=== PATIENT | male | born 1960 | race Caucasian/White ===

== ENCOUNTER 2016-12-24 12:53 | Emergency (ER) | payer BC ==
[2016-12-24 12:38] LABS: BASOPHILS 0.1 %; BASOPHILS ABSOLUTE 0.01 10/3/uL (0.0-0.16); EOSINOPHILS 0.3 %; EOSINOPHILS ABSOLUTE 0.02 10/3/uL (0.0-0.53); HEMATOCRIT 42.9 % (40.0-51.0); HEMOGLOBIN 14.3 g/dL (13.6-17.8); IMMATURE GRANULOCYTES 0.5 %; IMMATURE GRANULOCYTES ABSOLUTE 0.04 10/3/uL (0.0-0.11); LYMPHOCYTES 7.9 %; LYMPHOCYTES ABSOLUTE 0.63 10/3/uL (0.67-4.30); MEAN CORPUS HGB CONC 33.3 g/dL (32.0-36.0); MEAN CORPUSCULAR VOLUME 93.1 fL (80-100); MEAN PLATELET VOLUME 10.8 fL (9.2-13.0); MONOCYTES 7.9 %; MONOCYTES ABSOLUTE 0.63 10/3/uL (0.21-1.20); NEUTROPHILS 83.3 %; NEUTROPHILS ABSOLUTE 6.67 10/3/uL (2.02-8.40); PLATELET COUNT 96 10/3/uL (150-400); RBC DISTRIBUTION WIDTH 17.1 % (12.0-16.0); RED CELL COUNT 4.61 10/6/uL (4.7-6.1)
[2016-12-24 12:39] LABS: MANUAL DIFF NO %
[~2016-12-24 12:53] MED LIST: ACTOS15 PO; AMARYL2 PO; ASAB PO; COLCRYS0.6 MG PO; COQ-10200 MG PO; DIOV160 PO; GLUCPH PO; HALF81 PO; HYPOTEARS OPH S15 ML OPH; INVOKANA300 MG PO; LANTUSCART SC; LEVSINTAB PO; LEXAPRO10 PO; NORCO1 TA2 PO; NYS500UDL PO; P10 PO; PRAVACHOL40 MG PO; PRILOSEC40 MG PO; PYRID60 PO; URSO FORTE500 MG PO; Z-PAK PO
[2016-12-24 12:56] LABS: A/G RATIO 0.7 (0.7-1.9); ALBUMIN 2.8 G/DL (3.5-5.0); CALCIUM, SERUM 9.5 MG/DL (8.5-10.4); CHLORIDE, SERUM 103 MMOL/L (96-112); CO2 (CARBON DIOXIDE) 27 MMOL/L (24-34); CREATININE 1.29 MG/DL (0.70-1.30); GFR AFRICAN AMERICAN 71 ML/MIN (>=60); GFR NON AFRICAN AMERICAN 61 ML/MIN (>=60); GLOBULIN 3.9 G/DL (2.5-4.1); POTASSIUM, SERUM 4.1 MMOL/L (3.5-5.3); SGOT(AST) 111 U/L (5-40); SGPT(ALT) 289 U/L (5-65); SODIUM, SERUM 141 MMOL/L (135-148); TOTAL PROTEIN 6.7 G/DL (6.0-8.5)
[2016-12-24 12:57] LABS: ALKALINE PHOSPHATASE 305 U/L (45-117); BUN (BLOOD UREA NITROGEN) 56 MG/DL (6-23); GLUCOSE, SERUM 255 MG/DL (60-99); TOTAL BILIRUBIN 0.9 MG/DL (0-1.2)
[2017-03-07] MEDS ORDERED: METHOC500B PO (17:50)
[2017-03-07] MEDS ORDERED: FORTEO SC (17:51)
[2017-03-07] MEDS ORDERED: DSS PO (17:51)
[2017-03-07] MEDS ORDERED: PERCOCET 10/3251 TAB PO (17:53)
[2017-03-07] MEDS ORDERED: OS500+D PO (17:53)
[2017-03-07] MEDS ORDERED: HUMALOG SC (17:56)
[2017-03-07] MEDS ORDERED: DEMA20 PO (17:56)
[2017-03-07] MEDS ORDERED: NEUR300 PO (17:57)
[2017-03-07] MEDS ORDERED: SPIRO50 PO (17:57)
[2017-05-03] MEDS ORDERED: NORCO1 TAB PO (22:11)
[2017-05-03] MEDS ORDERED: FORTEO SC (22:12)
[2017-05-03] MEDS ORDERED: HUMALOGPEN SC (22:13)
[2017-05-03] MEDS ORDERED: PRILOSEC40 MG PO (22:13)
[2017-05-03] MEDS ORDERED: LEVSINTAB PO (22:14)
[2017-05-03] MEDS ORDERED: LEXAPRO10 PO (22:14)
[2017-05-03] MEDS ORDERED: SPIRO50 PO (22:15)
[2017-05-03] MEDS ORDERED: DEMA20 PO (22:16)
[2017-05-03] MEDS ORDERED: LANTUSCART SC (22:17)
[2017-05-03] MEDS ORDERED: URSO FORTE500 MG PO (22:18)
[2017-05-03] MEDS ORDERED: ASAB PO (22:18)
[2017-05-03] MEDS ORDERED: P10 PO (22:20)
[2017-05-03] MEDS ORDERED: PYRID60 PO (22:20)
[2017-05-03] MEDS ORDERED: METHOC500B PO (22:20)
[2017-05-03] MEDS ORDERED: OS500+D PO (22:21)
[2017-05-03] MEDS ORDERED: DSS PO (22:21)
[2017-05-03] MEDS ORDERED: CO Q-10200 MG PO (22:21)
[2017-05-03] MEDS ORDERED: MIRALAX POWDER1 PKT PO (22:22)
[2017-05-03] MEDS ORDERED: OCEAN NAS (22:23)
[2017-05-03] MEDS ORDERED: REFRESH OPH (22:23)
[2017-05-07] MEDS ORDERED: CEFT5 PO (14:21)
[2017-05-07] MEDS ORDERED: MONODOX100 MG PO (14:23)
== END 2016-12-24 20:20 | disposition home or self-care (01) ==
LOC: ER 12:53
PROVIDERS: Emergency Medicine
DX: R06.02 Shortness of breath (principal); Z87.442 Personal history of urinary calculi; Z88.0 Allergy status to penicillin; Z79.82 Long term (current) use of aspirin; Z79.4 Long term (current) use of insulin; Z79.52 Long term (current) use of systemic steroids; Z79.899 Other long term (current) drug therapy
CPT/HCPCS: 71020; 71275; 80053; 83880; 85025; 93005; 99285; Q9967